=== PATIENT | male | born 1950 | race Caucasian/White ===

== ENCOUNTER 2024-10-04 19:24 | Emergency (ER) | payer OTHER, SELFPAY ==
[2024-10-04 19:25] VITALS: BP 133/82
[2024-10-04 19:45] VITALS: BMI 25.8
--- NOTE | 2024-10-04 20:20 | ED.GENMED ---
History of Present Illness
General
Chief Complaint: Nose Bleed
Time Seen by Provider: 10/04/24 19:50
History of Present Illness
History of Present Illness:
74-year-old male presents due to persistent right-sided nosebleed for the past 2 hours. Has had intermittent nosebleeds over the past week but they seem to improve before today. He is not on anticoagulants.
Past History
Social History
Tobacco: Non-smoker
Personal:
Employment: Employed
Review of Systems
Review of Systems
Allergies reviewed?: Yes
All Other Systems: ROS reviewed and negative except as documented in HPI and ROS
Phy Exam
Physical Exam
Physical Exam:
GEN: Well appearing, NAD, WDWN
HEENT: Oral mucosa moist, no scleral icterus. Evidence of recent bleeding to the right nasal septum with no active bleeding
Cardiac: Regular rate
Lung: No respiratory distress, no tachypnea
MSK: No gross deformity or injuries
Skin: Good color, no pallor or jaundice, no rashes
Neuro: AO x3, moves all extremities freely
Psych: Calm, cooperative
Course
Vital Signs
Initial and Last Documented VS:
Initial Vital Signs
Temp Pulse Resp BP Pulse Ox
98.1 F 76 15 133/82 100
10/04/24 19:25 10/04/24 19:25 10/04/24 19:25 10/04/24 19:25 10/04/24 19:25
Last Documented Vital Signs
Temp Pulse Resp BP Pulse Ox
98.1 F 76 15 133/82 100
10/04/24 19:25 10/04/24 19:25 10/04/24 19:25 10/04/24 19:25 10/04/24 19:25
Procedures
Nosebleed
Drug treatment: Epinephrine
Treatment: Silver nitrate cautery
Post treatment bleeding: none- good control
MDM/Problems Addressed
MDM/Problems Addressed:
Patient treated with topical epinephrine and silver nitrate cautery with success, recommend ENT follow-up
*Critical Care Note
Total Time (30-74mins, 75-104mins- exclusive of procedures): Not Applicable
ED Attending Note
-
Portions of this chart may have been created with voice recognition software.� Occasional wrong word or��sound alike� substitutions may have occurred due to the inherent limitations of voice recognition software.
Discharge Plan
Departure
Patient Disposition: Home (Routine Discharge)
Date of Disposition: 10/04/24
Time of Disposition: 21:09
Patient with high blood pressure during this ER visit?: No
Discharge Problem:
Right-sided epistaxis
Instructions: Nosebleeds (DC)
Prescriptions:
No Action
alprazolam 0.5 MG tablet
0.5 mg PO BID
ranitidine HCl 15 MG/1 ML syrup
15 mg PO
Referrals:
Stevenson Desir MD [Family Provider] -
Chris Salmeron MD [Active] -
Interventions
Interventions:
*Risk Screen - Suicide Last Done: 10/04/24 19:25
*General Assessment Last Done: 10/04/24 19:25
*Neglect/Abuse Screening Last Done: 10/04/24 19:25
*ED COVID-19 Vaccine History Last Done: 10/04/24 19:25
*Nursing Disposition Last Done: 10/04/24 21:14
ED-EENT Assessment Last Done: 10/04/24 19:45
Discharge Date and Time
Discharge Date/Time: 10/04/24 21:15
Print Language: SUDANESE
== END 2024-10-04 21:15 | disposition home or self-care (01) ==
LOC: EMR 19:24
PROVIDERS: EMERGENCY PHYSICIAN Emergency Medicine; FAMILY PHYSICIAN Family Medicine
DX: R04.0 Epistaxis (principal)
CPT/HCPCS: 99282; 30901